=== PATIENT | female | born 1990 | race African-American/Black ===

== ENCOUNTER 2017-10-17 17:36 | Emergency (ER) | payer OTHER ==
[2017-10-17 18:10] LABS: BILIRUBIN,URINE NEGATIVE (NEGATIVE); GLUCOSE, URINE (UA) NEGATIVE (NEGATIVE); KETONES,URINE (UA) NEGATIVE (NEGATIVE); LEUKOCYTE ESTERASE, URINE NEGATIVE (NEGATIVE); NITRITE,URINE NEGATIVE (NEGATIVE); OCCULT BLOOD,URINE SMALL (NEGATIVE); PH,URINE 5.5 PH (5.0-7.5); PROTEIN,URINE NEGATIVE (NEGATIVE); UROBILINOGEN,URINE 0.2 (NORMAL) E.U./dL (NORMAL)
[2017-10-17 18:11] LABS: BASOPHILS # (AUTO) 0.1 10^3/uL (0.0-0.1); EOSINOPHILS # (AUTO) 0.1 10^3/uL (0.0-0.7); EOSINOPHILS % (AUTO) 0.7 %; HGB - HEMOGLOBIN 13.9 g/dL (12.0-16.0); LYMPHOCYTES # (AUTO) 2.4 10^3/uL (1.5-3.5); LYMPHOCYTES % (AUTO) 33.1 %; MEAN CORPUSCULAR HEMOGLOBIN 31.7 pg (27.0-31.0); MEAN CORPUSCULAR HGB CONC 34.5 g/dL (32.0-36.0); MEAN PLATELET VOLUME 7.7 fL (7.9-10.8); MONOCYTES # (AUTO) 0.6 10^3/uL (0.0-1.0); MONOCYTES % (AUTO) 8.4 %; NEUTROPHILS # (AUTO) 4.1 10^3/uL (1.5-6.6); NEUTROPHILS % (AUTO) 56.8 %; PLT - PLATELET COUNT 371 10^3/uL (130-450); RED CELL DISTRIBUTION WIDTH 13.9 % (12.0-15.0); WHITE BLOOD COUNT 7.2 x10^3/uL (4.8-10.8)
[2017-10-17 18:14] LABS: CLARITY,URINE CLEAR (CLEAR); HCG UR QUAL NEGATIVE
[2017-10-17 18:21] LABS: ALBUMIN 4.5 g/dL (3.2-5.5); ALBUMIN/GLOBULIN RATIO 1.6 (1.0-2.2); BILIRUBIN,TOTAL 0.6 mg/dL (0.2-1.0); CALCIUM 9.3 mg/dL (8.5-10.3); CREATININE 0.8 mg/dL (0.4-1.0); TOTAL PROTEIN 7.4 g/dL (6.7-8.2)
[2017-10-17 18:21] LABS: BACTERIA,URINE None Seen /HPF (None Seen); RBC,URINE 0-5 /HPF (0-5); SQUAMOUS EPITHELIAL CELL,UR FEW Squamous (<= Few)
--- NOTE | 2017-10-17 20:13 | ED Physician Documentation ---
PD HPI ABD PAIN - Stated complaint Stated Complaint: R SIDE PX - Chief complaint Chief Complaint: Abd Pain - History obtained from History obtained from: Patient - History of Present Illness Timing - onset: How many days ago (3) Timing - duration: Days (3) Timing - details: Gradual onset Pain level max: 8 Pain level now: 0 Quality: Pain Location: RLQ Radiation: Other ( no radiation) Improved by: Other (no ameliorating factors) Worsened by: Other (no exacerbating factors) Associated symptoms: No: Fever, Nausea, Vomiting, Diarrhea, Constipation Similar symptoms before: Other (similar symptoms in the past. has been told this was due to ovarian cyst, but was also rx antibiotic) Recently seen: Not recently seen Review of Systems Constitutional: denies: Fever, Chills, Sweats Cardiac: reports: Reviewed and negative Respiratory: reports: Reviewed and negative GI: reports: Abdominal Pain. denies: Nausea, Vomiting, Constipation, Diarrhea : reports: LMP (ended 2 days ago). denies: Dysuria, Frequency Musculoskeletal: denies: Back pain PD PAST MEDICAL HISTORY - Past Medical History Past Medical History: No - Past Surgical History Past Surgical History: Yes HEENT: Tonsil/Adenoidectomy - Present Medications Home Medications: Ambulatory Orders Medication Instructions Recorded Confirmed No Known Home Medications [No 10/17/17 10/17/17 Known Home Medications] - Allergies Allergies/Adverse Reactions: Allergies Allergy/AdvReac Type Severity Reaction Status Date / Time No Known Drug Allergies Allergy Verified 10/17/17 17:47 PD ED PE NORMAL - Vitals Vital signs reviewed: Yes - General General: Alert and oriented X 3, No acute distress, Well developed/nourished - Abdomen Abdomen: Soft, Non distended, Other (mild RLQ TTP without rebound or guarding) - Back Back: No CVA TTP - Extremities Extremities: No edema Results - Vitals Vitals: Vital Signs - 24 hr 10/17/17 10/17/17 10/17/17 17:46 19:52 21:56 Temperature 36.4 C L 36.3 C L Heart Rate 75 64 64 Respiratory 16 18 18 Rate Blood Pressure 141/84 H 115/65 116/66 O2 Saturation 100 99 100 Oxygen O2 Source Room air - Labs Labs: Laboratory Tests 10/17/17 10/17/17 10/17/17 18:00 18:00 18:04 WBC 7.2 RBC 4.40 Hgb 13.9 Hct 40.5 MCV 92.0 MCH 31.7 H MCHC 34.5 RDW 13.9 Plt Count 371 MPV 7.7 L Neut # (Auto) 4.1 Lymph # (Auto) 2.4 [place] # (Auto) 0.6 Eos # (Auto) 0.1 Baso # (Auto) 0.1 Absolute Nucleated RBC 0.01 Nucleated RBC % 0.1 Sodium Potassium Chloride Carbon Dioxide Anion Gap BUN Creatinine Estimated GFR (MDRD) Glucose Calcium Total Bilirubin AST ALT Alkaline Phosphatase Total Protein Albumin Globulin Albumin/Globulin Ratio Lipase Urine Color YELLOW Urine Clarity CLEAR Urine pH 5.5 Ur Specific [place] 1.025 1.025 Urine Protein NEGATIVE Urine Glucose (UA) NEGATIVE Urine Ketones NEGATIVE Urine Occult Blood SMALL H Urine Nitrite NEGATIVE Urine Bilirubin NEGATIVE Urine Urobilinogen 0.2 (NORMAL) Ur Leukocyte Esterase NEGATIVE Urine RBC 0-5 Urine WBC 0-3 Ur Squamous Epith Cells FEW Squamous Urine Bacteria None Seen Ur Microscopic Review INDICATED Urine Culture Comments NOT INDICATED Urine HCG, Qual NEGATIVE 10/17/17 18:04 WBC RBC Hgb Hct MCV MCH MCHC RDW Plt Count MPV Neut # (Auto) Lymph # (Auto) [place] # (Auto) Eos # (Auto) Baso # (Auto) Absolute Nucleated RBC Nucleated RBC % Sodium 138 Potassium 3.7 Chloride 104 Carbon Dioxide 26 Anion Gap 8.0 BUN 18 Creatinine 0.8 Estimated GFR (MDRD) 106 Glucose 105 H Calcium 9.3 Total Bilirubin 0.6 AST 19 ALT 14 Alkaline Phosphatase 49 Total Protein 7.4 Albumin 4.5 Globulin 2.9 Albumin/Globulin Ratio 1.6 Lipase 36 Urine Color Urine Clarity Urine pH Ur Specific [place] Urine Protein Urine Glucose (UA) Urine Ketones Urine Occult Blood Urine Nitrite Urine Bilirubin Urine Urobilinogen Ur Leukocyte Esterase Urine RBC Urine WBC Ur Squamous Epith Cells Urine Bacteria Ur Microscopic Review Urine Culture Comments Urine HCG, Qual - Rads (name of study) CT A/P Radiology: Prelim report reviewed, See rad report PD MEDICAL DECISION MAKING - ED course Complexity details: reviewed results, re-evaluated patient, considered differential, d/w patient - Sepsis Event Vital Signs: Vital Signs - 24 hr 10/17/17 10/17/17 10/17/17 17:46 19:52 21:56 Temperature 36.4 C L 36.3 C L Heart Rate 75 64 64 Respiratory 16 18 18 Rate Blood Pressure 141/84 H 115/65 116/66 O2 Saturation 100 99 100 Oxygen O2 Source Room air Departure - Departure Disposition: 01 Home, Self Care Clinical Impression: Abdominal pain Qualifiers: Abdominal location: right lower quadrant Qualified Code(s): R10.31 - Right lower quadrant pain Condition: Good Instructions: ED Abdominal Pain Unkn Cause, ED Pelvic Pain [facility] Follow-Up: ELLIS Gordillo [Provider Group] (2-3 days if symptoms have not resolved) Discharge Date/Time: 10/17/17 21:56
[2017-10-17] MEDS ORDERED: KETOROLAC 60 MG/2 ML VIAL IM STA (20:24)
--- NOTE | 2017-10-17 21:31 | CT Report ---
Procedure Date: 10/17/2017 Accession Number: [id number] / [id number] Procedure: CT - Abdomen/Pelvis W/O CPT Code: FULL RESULT: EXAM: CT ABDOMEN AND PELVIS (CT KUB) EXAM DATE: 10/17/2017 09:19 PM. CLINICAL HISTORY: RLQ pain. Stone study. History of ovarian cysts. COMPARISONS: None. TECHNIQUE: Routine axial helical CT imaging was performed through the abdomen and pelvis without IV contrast. Reconstructions: Coronal and sagittal. In accordance with CT protocol optimization, one or more of the following dose reduction techniques were utilized for this exam: automated exposure control, adjustment of mA and/or KV based on patient size, or use of iterative reconstructive technique. FINDINGS: Lung Bases: Unremarkable. Right Kidney/Ureter: No stones, hydronephrosis, or hydroureter. No perinephric fat stranding. Left Kidney/Ureter: No stones, hydronephrosis, or hydroureter. No perinephric fat stranding. Other Solid Organs: Noncontrast images of the solid organs are grossly unremarkable. Gallbladder/Bile Ducts: Unremarkable. Peritoneal Cavity: Unopacified stomach and small bowel are nondistended. Appendix is normal. There is a small amount of formed stool in the colon. There is minimal dependent free fluid in the pelvis. There is no pneumoperitoneum or lymphadenopathy. Pelvic Organs: Bladder normal in size and contour. No bladder stones. Anteverted uterus normal in size. Ovaries not enlarged. Vasculature: Tiny bilateral pelvic phleboliths. Other: Abdominal wall unremarkable. Developmental bony fusion at T12-L1. IMPRESSION: 1. No urinary tract stones or obstruction. 2. Trace free fluid in the pelvis. 3. No specific findings to explain right-sided pain. RADIA
[2017-10-17] MEDS ORDERED: HYDROcod/ACET 5/325 Prepack 4 PO STA (21:48)
[2017-10-17 21:57] VITALS: BP 116/66
== END 2017-10-17 21:56 | disposition home or self-care (01) ==
LOC: ED 17:36
DX: R10.31 Right lower quadrant pain (principal)
CPT/HCPCS: 36415; 74176; 80053; 81001; 81003; 81025; 83690; 85025; 87086; 96372; 99283

== ENCOUNTER 2019-05-24 14:01 | Emergency (ER) | payer OTHER ==
[2019-05-24 14:08] VITALS: BP 122/63
--- NOTE | 2019-05-24 15:17 | ED Physician Documentation ---
PD HPI HEENT - Stated complaint Stated Complaint: HEARING LOSS - Chief complaint Chief Complaint: Heent - History obtained from History obtained from: Patient - History of Present Illness Timing - onset: How many days ago (2-3) Timing - duration: Days (2-3) Timing - details: Gradual onset, Still present (worst today, can't hear at all in eaither ear.) Location: Right ear, Left ear Worsens: Noise Associated symptoms: No: Fever, Congestion, Swollen nodes, Cough Similar symptoms before: Diagnosis (earwax impaction, and she has tried ear wax drops and peroxide the past couple days without improvement.) Review of Systems Constitutional: denies: Fever, Chills Ears: reports: Loss of hearing. denies: Ear pain, Tinnitus/ringing Nose: denies: Rhinorrhea / runny nose, Congestion Throat: denies: Sore throat Respiratory: denies: Cough PD PAST MEDICAL HISTORY - Past Medical History Past Medical History: Yes Cardiovascular: None Respiratory: None Neuro: None Endocrine/Autoimmune: None GI: None [employer]: None, Ovarian cysts : None HEENT: Other Psych: None Musculoskeletal: None Derm: None Other Past Medical History: Saw ENT in approx 2017 & told ear canal is very small. Ent is in [facility]. - Past Surgical History Past Surgical History: Yes HEENT: Tonsil/Adenoidectomy - Present Medications Home Medications: Ambulatory Orders Medication Instructions Recorded Confirmed No Known Home Medications 10/17/17 10/17/17 - Allergies Allergies/Adverse Reactions: Allergies Allergy/AdvReac Type Severity Reaction Status Date / Time No Known Drug Allergies Allergy Verified 05/24/19 14:06 - Social History Does the pt smoke?: No Smoking Status: Former smoker Does the pt drink ETOH?: No Does the pt have substance abuse?: No - Immunizations Immunizations are current?: Yes - POLST Patient has POLST: No PD ED PE NORMAL - Vitals Vital signs reviewed: Yes - General General: Alert and oriented X 3, Well developed/nourished - HEENT HEENT: Moist mucous membranes, Pharynx benign. No: Ears normal (impacted wax both sides. No redness. ) - Neck Neck: Supple, no meningeal sign, No adenopathy - Cardiac Cardiac: RRR, No murmur - Respiratory Respiratory: Clear bilaterally Results - Vitals Vitals: Vital Signs - 24 hr 05/24/19 14:06 Temperature 36.7 C Heart Rate 63 Respiratory 15 Rate Blood Pressure 122/63 O2 Saturation 100 Oxygen O2 Source Room air PD MEDICAL DECISION MAKING - ED course Complexity details: re-evaluated patient (look at ears after wax out, no signs of infection. Mild inflammation around left TM, so presume hearing will improve a bit slower. She says hearing is much better, normal on right and still slight muffled on left. ), considered differential (earwax impaction, will remove it with curette and irrigation. ), d/w patient Departure - Departure Disposition: 01 Home, Self Care Clinical Impression: Impacted ear wax Qualifiers: Laterality: bilateral Qualified Code(s): H61.23 - Impacted cerumen, bilateral Condition: Stable Record reviewed to determine appropriate education?: Yes Instructions: ED Earwax Removal Follow-Up: SUE NO [Primary Care Provider] - Comments: The ear canals appear open now. There is a little bit of wax still left on the left side but the eardrum is visible. You can continue the earwax drops for another 2 or 3 days to make sure it stays cleared out. I would anticipate return to normal hearing in the next day or 2 as there can be a little infl ammation of the eardrum. No signs of infection. Discharge Date/Time: 05/24/19 16:26
== END 2019-05-24 16:26 | disposition home or self-care (01) ==
LOC: ED 14:01
DX: H61.23 Impacted cerumen, bilateral (principal); Z87.891 Personal history of nicotine dependence
CPT/HCPCS: 99281